=== PATIENT | male | born 1960 | race Caucasian/White ===

== ENCOUNTER 2017-10-14 16:14 | Emergency (ER) | payer BC ==
[~2017-10-14] VITALS: Ht 193 cm; Wt 90.0 kg
[~2017-10-14 16:14] MED LIST: NO HOME MEDICATIONS
[2017-10-14 16:17] VITALS: TEMP 98.2
[2017-10-14] MEDS ORDERED: NORCO 325 MG-7.1 TAB PO (18:37)
[2017-10-14 18:50] VITALS: BP 132/68; PULSE 82
== END 2017-10-14 18:58 | disposition home or self-care (01) ==
LOC: COL.ER 16:14
DX: S76.112A Strain of left quadriceps muscle, fascia and tendon, initial encounter (principal); X50.0XXA Overexertion from strenuous movement or load, initial encounter; Y92.009 Unspecified place in unspecified non-institutional (private) residence as the place of occurrence of the external cause

== ENCOUNTER → 2018-08-21 | Outpatient (REF) ==
[~2018-08-21] MED LIST changes: +NORCO 325 MG-7.1 TAB PO
== END ==
LOC: ZLAB.WCH 18:14
DX: Z01.89 Encounter for other specified special examinations (principal)
CPT/HCPCS: G0103

== ENCOUNTER 2021-05-12 20:32 | Emergency (ER) | payer BC ==
[~2021-05-12] VITALS: Ht 193 cm; Wt 95.5 kg
[2021-05-12 21:03] VITALS: TEMP 98.3
[2021-05-12 23:05] VITALS: BP 160/89; PULSE 70
== END 2021-05-12 23:00 | disposition home or self-care (01) ==
LOC: COL.ER 20:32
DX: M20.031 Swan-neck deformity of right finger(s) (principal); W23.0XXA Caught, crushed, jammed, or pinched between moving objects, initial encounter

== ENCOUNTER 2024-03-23 05:57 | Day surgery (SDC) | payer BC ==
[~2024-03-23] VITALS: Ht 191.8 cm; Wt 97.3 kg
[~2024-03-23 05:57] MED LIST changes: +LR 1,000 ML IV SCH; +Ondansetron 4 MG/2 ML VIAL IV PRN
[2024-03-23 07:24] VITALS: BP 143/94; PULSE 73; TEMP 97.4
[2024-03-23 08:15] VITALS: BP 115/82; PULSE 71; TEMP 97.5
[2024-03-23 08:30] VITALS: BP 115/82; BP 115/92; PULSE 62
--- NOTE | 2024-03-23 16:06 | NUR ---
0815: PT TO [facility] 4 FROM ENDO SUITE. AMBULATED FROM CART TO RECLINER X2 ASSIST. REPORT RECEIVED FROM ENDO NURSE. PT ALERT AND ORIENTED. DENIES PAIN OR NAUSEA. REQUESTING MUFFIN AND ORANGE JUICE. RESTING IN RECLINER. CALL LIGHT IN REACH. NO FAMILY AT BEDSIDE. CALLED TO DERMATOLOGIST MANAGING PARTNER PT. 0830: PT ALERT AND ORIENTED. TOLERATING MUFFIN AND JUICE. DENIES PAIN AND NAUSEA. RESTING IN RECLINER. CALL LIGHT IN REACH. IV DC'D AT THIS TIME. DR. HANSON IN TO SPEAK WITH PT. PT DENIES ASSISTANCE DRESSING. 0835: DISCHARGE EDUCATION DONE AT THIS TIME. PT STATED UNDERSTANDING OF DC INSTRUCTIONS. DC PAPERWORK GIVEN TO PT. 0838: PT AMBULATED INDEPENDENTLY FROM RECLINER TO WHEELCHAIR. PT OFF UNIT AT THIS TIME. PT DC TO HOME WITH PER PERSONAL VEHICLE.
== END 2024-03-23 08:38 | disposition home or self-care (01) ==
LOC: SDCO 05:57
DX: Z12.11 Encounter for screening for malignant neoplasm of colon (principal); D12.5 Benign neoplasm of sigmoid colon; K63.5 Polyp of colon
CPT/HCPCS: J7120